=== PATIENT | male | born 1930 | race Caucasian/White ===

== ENCOUNTER 2016-10-12 10:13 | Inpatient (IN) | payer OTHER, MEDICARE ==
[~2016-10-12] VITALS: Ht 180.3 cm; Wt 84.6 kg
[~2016-10-12 10:13] MED LIST: ACYCLOVIR400 MG PO; ADULT MULTI G200 MCG PO; ALBUTEROL0.09 MG/Ac INH; ALDACTONE25 M1 PO; AMLODIPINE BESYL5 MG PO; ARTIFICIAL TEAR15 M1 OPH; ARTIFICIAL TEAR30 M1 OPH; ASMANEX TW0.22 MG/AC IH; ASMANEX220 MCG INH; ASPI-COR81 M1 PO; ASPIR-LOW81 MG PO; ASPIRIN81 M1 PO; ATENOLOL50 MG PO; ATORVASTATIN CA20 M1 PO; ATROVENT I0.5 MG/2.5 INH; Accuneb 0.1.25 MG/3 INH; B12,B-12,B 12500 MC1 PO; BASLE1 CRE TP; BENZONATATE100 M1 PO; CARVEDILOL12.5 MG PO; CEPHALEXIN500 M1 PO; CHEWABLE ASPIRI81 MG PO; CHLORPHENIRAMINE4 MG PO; CIPRO500 MG PO; CIPROFLOXACIN500 MG PO; CLINDAMYCIN300 MG PO; CLONIDINE0.1 MG PO; CLOPIDOGREL75 MG PO; CLOTRIMAZOLE10 MG MM; COLACE100 MG PO; COREG12.5 M1 PO; COREG25 MG PO; COUMADIN4 M2 PO; COUMADIN5 M2 PO; COUMADIN6 M2 PO; COUMADIN7.5 M1 PO; Coumadin3 MG PO; DARVOCET A500 51 TA1 PO; DOCUSATE100 MG PO; DOXYCYCLINE MO100 MG PO; DOXYCYCLINE100 M3 PO; EFFER-K20 MEQ PO; ERYTHROMYCIN OPH1 GM OPH; Ecotrin325 MG PO; FINASTERIDE5 MG PO; FLOMAX0.4 MG PO; FLORASTOR PO; FLUNISOLID0.025 MG/A NS; FLUOROURACIL5% T; FUROSEMIDE10 MG/ML IV; FUROSEMIDE40 MG PO; GOOD SENSE ASP325 M1 PO; IMDUR SA30 MG PO; ISOPTO TEARS INTRAOC; K-DUR 1010 MEQ PO; K-LOR 20MEQ20 ME1 PO; K-Lyte/Cl25 MEQ PO; KENALOG 0.025%15 GM PO; KETOCONAZOLE 1120 M1 TP; KETOCONAZOLE T; KETOCONAZOLE TP; LANOXIN0.125 MG PO; LASIX20 MG PO; LASIX40 MG PO; LEVAQUIN750 M1 PO; LIPITOR20 MG PO; LIPITOR40 MG PO; LISINOPRIL10 M1 PO; LISINOPRIL2.5 MG PO; LISINOPRIL20 MG PO; LISINOPRIL5 MG PO; Lovenox40 MG/0.4 PO; Lovenox40 MG/0.4 SC; MAGNESIUM OXID420 M1 PO; MAGNESIUM OXID420 MG PO; MAGOX 400400 MG PO; MAREPA1200 MG PO; METRONIDAZOLE250 M1 PO; MUCINEX ER600 MG PO; MUCINEX FAST-M1 EAC5 PO; MULTIPLE VITAMI1 CAP PO; MULTIVITAMIN &1 TAB PO; NEOSPORIN OINT15 GM T; NITROSTAT0.4 MG SL; PANTOPRAZOLE SO40 MG PO; PERCOCET 325 MG1 TA2 PO; PLAVIX75 M1 PO; POLYCIN EYE OI3.5 GM OS; POTASSIUM CHLO20 MEQ PO; POTASSIUM20 MEQ PO; PREDNISONE10 MG PO; PREDNISONE20 M1 PO; PRILOSEC20 MG PO; PROVENTIL0.09 MG/A1 INH; PROVENTIL0.09 MG/AC IH; PYRIDIUM200 MG PO; QUESTRAN LIGHT4 GM PO; RANITIDINE 7575 MG PO; SENSI-CARE PROT1 OI1 TP; SIMVASTATIN20 MG PO; SODIUM CHLORIDE; SPIRONOLACTONE50 MG PO; SYMBICORT1 AE1 INH; VANCOCIN125 MG PO; VITAMIN D32000 I1 PO; VITAMIN D32000 UNIT PO; WARFARIN SODIUM5 MG PO; WARFARIN2 MG PO; ZITHROMAX250 MG PO
[2016-10-12 10:31] VITALS: BP 141/67
[2016-10-12] MEDS ORDERED: RANITIDINE 7575 MG PO (10:41)
[2016-10-12 10:44] LABS: BASO % 0.2 % (0.0-1.0); EOS % 0.2 % (1.0-4.0); HEMOGLOBIN 9.5 g/dl (14.0-18.0); LYMPH # 0.4 10*3/uL (1.3-4.4); LYMPH % 8.9 % (27.0-41.0); MEAN CELL VOLUME 93.9 fl (80.0-94.0); MEAN CORPUSCULAR HGB 26.2 pg (27.0-31.0); MEAN CORPUSCULAR HGB CONC 27.9 g/dl (33.0-37.0); MEAN PLATELET VOLUME 10.6 fl (9.6-12.3); MONO # 0.3 10*3/uL (0.1-1.0); NEUT # 3.5 10*3/uL (2.3-7.9); NEUT % 84.5 % (47.0-73.0); PLATELET COUNT AUTOMATED 81 10*3/uL (130-400); RED BLOOD COUNT 3.62 10*6/uL (4.50-5.90); RED CELL DISTRI WIDTH 15.9 % (0-14.5); WHITE BLOOD COUNT 4.2 10*3/uL (4.8-10.8)
[2016-10-12 10:53] LABS: INTERNATIONAL NORM RATIO 1.3 (2.0-3.5); PROTHROMBIN TIME 14.1 SECONDS (9.0-12.4)
[2016-10-12 10:58] LABS: ALBUMIN 3.3 gm/dl (3.1-4.5); ALKALINE PHOSPHATASE 68 U/L (45-117); BILIRUBIN, TOTAL 1.7 mg/dl (0.2-1.0); BUN 26 mg/dl (7-24); C-REACTIVE PROTEIN < 0.29 MG/DL (0-0.3); CARBON DIOXIDE 33 mmol/L (21-32); CHLORIDE 107 mmol/L (98-107); CKMB 2.8 ng/ml (0.5-3.6); CPK 29 U/L (39-308); EST GLOM FILT AFRICAN AMERICAN 53 ml/min; GLUCOSE 87 mg/dL (65-99); MAGNESIUM 2.4 mg/dL (1.5-2.1); POTASSIUM 3.7 mmol/L (3.5-5.1); SGOT/AST 11 IU/L (3-35); SGPT/ALT 9 U/L (12-78); SODIUM 145 mmol/L (136-145); TOTAL PROTEIN 5.8 gm/dL (6.4-8.2); TROPONIN I 0.041 ng/ml (<0.045)
[2016-10-12 13:22] VITALS: BP 145/78
[2016-10-12 13:45] VITALS: BP 151/68
[2016-10-12 14:17] VITALS: BP 151/68
[2016-10-12 16:00] VITALS: BP 137/62
[2016-10-12 20:00] VITALS: BP 130/56
[2016-10-13] VITALS: BP 118/50
[2016-10-13 04:00] VITALS: BP 115/51
[2016-10-13 06:14] LABS: BASO % 0.4 % (0.0-1.0); EOS % 1.2 % (1.0-4.0); HEMATOCRIT 29.5 % (42.0-52.0); HEMOGLOBIN 8.3 g/dl (14.0-18.0); LYMPH # 0.3 10*3/uL (1.3-4.4); LYMPH % 11.2 % (27.0-41.0); MEAN CELL VOLUME 93.1 fl (80.0-94.0); MEAN CORPUSCULAR HGB 26.2 pg (27.0-31.0); MEAN CORPUSCULAR HGB CONC 28.1 g/dl (33.0-37.0); MEAN PLATELET VOLUME 10.3 fl (9.6-12.3); MONO # 0.2 10*3/uL (0.1-1.0); NEUT % 78.8 % (47.0-73.0); PLATELET COUNT AUTOMATED 59 10*3/uL (130-400); RED BLOOD COUNT 3.17 10*6/uL (4.50-5.90); RED CELL DISTRI WIDTH 15.9 % (0-14.5); WHITE BLOOD COUNT 2.5 10*3/uL (4.8-10.8)
[2016-10-13 06:38] LABS: ALBUMIN 2.8 gm/dl (3.1-4.5); ALKALINE PHOSPHATASE 59 U/L (45-117); BILIRUBIN, TOTAL 1.2 mg/dl (0.2-1.0); BUN 23 mg/dl (7-24); CARBON DIOXIDE 35 mmol/L (21-32); CHLORIDE 104 mmol/L (98-107); EST GLOM FILT AFRICAN AMERICAN > 60 ml/min; FREE T4 0.83 ng/dl (0.76-1.46); GLUCOSE 85 mg/dL (65-99); SGOT/AST 11 IU/L (3-35); SGPT/ALT 8 U/L (12-78); SODIUM 144 mmol/L (136-145)
[2016-10-13 06:40] LABS: INTERNATIONAL NORM RATIO 1.3 (2.0-3.5); PROTHROMBIN TIME 14.4 SECONDS (9.0-12.4)
[2016-10-13 06:46] LABS: POTASSIUM 2.6 mmol/L (3.5-5.1)
[2016-10-13 07:00] LABS: FOLIC ACID 6.1 ng/mL (>5.38)
[2016-10-13 08:00] VITALS: BP 124/58
[2016-10-13 12:00] VITALS: BP 120/50; BP 124/58
[2016-10-13 16:00] VITALS: BP 114/46
[2016-10-13 20:00] VITALS: BP 137/69
[2016-10-14] VITALS: BP 124/61
[2016-10-14 07:33] LABS: BUN 18 mg/dl (7-24); CARBON DIOXIDE 33 mmol/L (21-32); CHLORIDE 103 mmol/L (98-107); EST GLOM FILT AFRICAN AMERICAN > 60 ml/min; GLUCOSE 87 mg/dL (65-99); POTASSIUM 2.8 mmol/L (3.5-5.1); SODIUM 142 mmol/L (136-145)
[2016-10-14 08:00] VITALS: BP 128/60
[2016-10-14 12:00] VITALS: BP 132/70
[2016-10-14] MEDS ORDERED: ALDACTONE25 MG PO (13:57)
[2016-10-14 16:00] VITALS: BP 110/58
== END 2016-10-14 17:18 | disposition home or self-care (01) | DRG 291 ==
LOC: ED 10:13 → EDHOLD 12:38 → 4E 12:38
PROVIDERS: Emergency Medicine; Hospitalist; Internal Medicine Hospice and Palliative Medicine
DX: I50.43 Acute on chronic combined systolic (congestive) and diastolic (congestive) heart failure (principal); N17.0 Acute kidney failure with tubular necrosis; J96.90 Respiratory failure, unspecified, unspecified whether with hypoxia or hypercapnia; J18.9 Pneumonia, unspecified organism; D61.818 Other pancytopenia; J96.11 Chronic respiratory failure with hypoxia; D68.59 Other primary thrombophilia; J44.0 Chronic obstructive pulmonary disease with (acute) lower respiratory infection; E44.1 Mild protein-calorie malnutrition; I42.0 Dilated cardiomyopathy; E83.41 Hypermagnesemia; I25.10 Atherosclerotic heart disease of native coronary artery without angina pectoris; I48.2 Chronic atrial fibrillation; E78.5 Hyperlipidemia, unspecified; I73.9 Peripheral vascular disease, unspecified; Z96.652 Presence of left artificial knee joint; E87.6 Hypokalemia; E80.6 Other disorders of bilirubin metabolism; D46.9 Myelodysplastic syndrome, unspecified; I48.0 Paroxysmal atrial fibrillation; Z88.0 Allergy status to penicillin; Z88.2 Allergy status to sulfonamides; Z99.81 Dependence on supplemental oxygen; Z95.810 Presence of automatic (implantable) cardiac defibrillator; Z68.26 Body mass index [BMI] 26.0-26.9, adult; Z83.79 Family history of other diseases of the digestive system; Z82.3 Family history of stroke; Z82.49 Family history of ischemic heart disease and other diseases of the circulatory system; Z95.828 Presence of other vascular implants and grafts; Z98.42 Cataract extraction status, left eye; Z98.41 Cataract extraction status, right eye

== ENCOUNTER 2016-10-28 19:30 | Emergency (ER) | payer MEDICARE ==
[~2016-10-28] VITALS: Ht 180.3 cm; Wt 85.3 kg
[~2016-10-28 19:30] MED LIST changes: +ALDACTONE25 MG PO
[2016-10-28 20:35] LABS: BASO % 0.3 % (0.0-1.0); EOS % 0.5 % (1.0-4.0); HEMATOCRIT 30.8 % (42.0-52.0); HEMOGLOBIN 8.5 g/dl (14.0-18.0); LYMPH # 0.4 10*3/uL (1.3-4.4); LYMPH % 9.8 % (27.0-41.0); MEAN CELL VOLUME 93.6 fl (80.0-94.0); MEAN CORPUSCULAR HGB 25.8 pg (27.0-31.0); MEAN CORPUSCULAR HGB CONC 27.6 g/dl (33.0-37.0); MEAN PLATELET VOLUME 10.8 fl (9.6-12.3); MONO # 0.3 10*3/uL (0.1-1.0); MONO % 6.3 % (3.0-9.0); NEUT # 3.3 10*3/uL (2.3-7.9); NEUT % 82.6 % (47.0-73.0); PLATELET COUNT AUTOMATED 78 10*3/uL (130-400); RED BLOOD COUNT 3.29 10*6/uL (4.50-5.90); RED CELL DISTRI WIDTH 16.3 % (0-14.5)
[2016-10-28 20:45] LABS: INTERNATIONAL NORM RATIO 1.3 (2.0-3.5); PROTHROMBIN TIME 13.5 SECONDS (9.0-12.4)
[2016-10-28 20:47] LABS: POTASSIUM 4.5 mmol/L (3.5-5.1)
[2016-10-28] MEDS ORDERED: ANUSOL-HC25 MG R (21:22)
== END 2016-10-28 21:25 | disposition home or self-care (01) ==
LOC: ED 19:30
PROVIDERS: Emergency Medicine Emergency Medical Services
DX: K62.5 Hemorrhage of anus and rectum (principal); K64.8 Other hemorrhoids; Z87.891 Personal history of nicotine dependence; Z85.810 Personal history of malignant neoplasm of tongue; Z95.810 Presence of automatic (implantable) cardiac defibrillator; Z99.81 Dependence on supplemental oxygen; E78.5 Hyperlipidemia, unspecified; I25.10 Atherosclerotic heart disease of native coronary artery without angina pectoris; I50.9 Heart failure, unspecified; J44.9 Chronic obstructive pulmonary disease, unspecified; I48.91 Unspecified atrial fibrillation; Z88.0 Allergy status to penicillin; Z88.2 Allergy status to sulfonamides; Z79.899 Other long term (current) drug therapy

== ENCOUNTER 2016-11-21 07:43 | Inpatient (IN) | payer MEDICARE ==
[2016-11-21] VITALS (8 sets, daily range): BP systolic 107–129; BP diastolic 45–76
[~2016-11-21] VITALS: Ht 154.9 cm; Wt 90.7 kg
[~2016-11-21 07:43] MED LIST changes: +ANUSOL-HC25 MG R
[2016-11-21] MEDS ORDERED: ATORVASTATIN CA20 M1 PO (07:49)
[2016-11-21] MEDS ORDERED: CLOPIDOGREL75 MG PO (07:50)
[2016-11-21] MEDS ORDERED: LASIX40 MG PO (07:50)
[2016-11-21] MEDS ORDERED: LANOXIN0.125 MG PO (07:50)
[2016-11-21] MEDS ORDERED: COREG6.25 MG PO (07:50)
[2016-11-21] MEDS ORDERED: ISOSORBIDE MONO30 MG PO (07:51)
[2016-11-21] MEDS ORDERED: PRINIVIL10 MG PO (07:51)
[2016-11-21] MEDS ORDERED: MAGNESIUM OXID420 M1 PO (07:51)
[2016-11-21] MEDS ORDERED: PROVENTIL0.09 MG/A1 INH (07:52)
[2016-11-21] MEDS ORDERED: POTASSIUM CHLO20 ME3 PO (07:52)
[2016-11-21] MEDS ORDERED: SYMBICORT1 AE1 INH (07:53)
[2016-11-21] MEDS ORDERED: DOUBLE ANTIBI28.4 GM TP (07:53)
[2016-11-21] MEDS ORDERED: ARTIFICIAL TEA1 EACH OP (07:53)
[2016-11-21] MEDS ORDERED: BASLE1 CRE TP (07:54)
[2016-11-21 08:26] LABS: HEMATOCRIT 28.1 % (42.0-52.0); HEMOGLOBIN 7.5 g/dl (14.0-18.0); LYMPH # 0.3 10*3/uL (1.3-4.4); LYMPH % 6.6 % (27.0-41.0); MEAN CELL VOLUME 91.5 fl (80.0-94.0); MEAN CORPUSCULAR HGB 24.4 pg (27.0-31.0); MEAN CORPUSCULAR HGB CONC 26.7 g/dl (33.0-37.0); MEAN PLATELET VOLUME 11.6 fl (9.6-12.3); MONO # 0.3 10*3/uL (0.1-1.0); MONO % 7.5 % (3.0-9.0); NEUT # 3.7 10*3/uL (2.3-7.9); PLATELET COUNT AUTOMATED 54 10*3/uL (130-400); RED BLOOD COUNT 3.07 10*6/uL (4.50-5.90); RED CELL DISTRI WIDTH 16.8 % (0-14.5); WHITE BLOOD COUNT 4.4 10*3/uL (4.8-10.8)
[2016-11-21 08:35] LABS: INTERNATIONAL NORM RATIO 1.2 (2.0-3.5); PROTHROMBIN TIME 12.5 SECONDS (9.0-12.4)
[2016-11-21 08:44] LABS: ALBUMIN 2.8 gm/dl (3.1-4.5); BILIRUBIN, TOTAL 1.4 mg/dl (0.2-1.0); TOTAL PROTEIN 5.6 gm/dL (6.4-8.2)
[2016-11-21 08:45] LABS: TROPONIN I 0.042 ng/ml (<0.045)
[2016-11-21 18:10] LABS: CKMB 1.6 ng/ml (0.5-3.6); TROPONIN I 0.04 ng/ml (<0.045)
[2016-11-22] VITALS: BP 128/63
[2016-11-22 00:45] LABS: CKMB 0.9 ng/ml (0.5-3.6); TROPONIN I 0.042 ng/ml (<0.045)
[2016-11-22 05:58] LABS: CKMB 1.1 ng/ml (0.5-3.6)
[2016-11-22 06:00] LABS: TROPONIN I 0.056 ng/ml (<0.045)
[2016-11-22 06:04] LABS: EOS % 0.3 % (1.0-4.0); HEMATOCRIT 25.7 % (42.0-52.0); HEMOGLOBIN 6.9 g/dl (14.0-18.0); LYMPH # 0.3 10*3/uL (1.3-4.4); LYMPH % 8.9 % (27.0-41.0); MEAN CELL VOLUME 90.8 fl (80.0-94.0); MEAN CORPUSCULAR HGB 24.4 pg (27.0-31.0); MEAN CORPUSCULAR HGB CONC 26.8 g/dl (33.0-37.0); MEAN PLATELET VOLUME 11.9 fl (9.6-12.3); MONO # 0.3 10*3/uL (0.1-1.0); MONO % 8.6 % (3.0-9.0); NEUT # 2.5 10*3/uL (2.3-7.9); NEUT % 81.5 % (47.0-73.0); PLATELET COUNT AUTOMATED 60 10*3/uL (130-400); RED BLOOD COUNT 2.83 10*6/uL (4.50-5.90); RED CELL DISTRI WIDTH 16.6 % (0-14.5)
[2016-11-22 06:12] LABS: ALBUMIN 2.7 gm/dl (3.1-4.5); ALKALINE PHOSPHATASE 65 U/L (45-117); BILIRUBIN, TOTAL 0.9 mg/dl (0.2-1.0); BUN 26 mg/dl (7-24); CARBON DIOXIDE 34 mmol/L (21-32); CHLORIDE 104 mmol/L (98-107); CHOLESTEROL 54 mg/dL (<200); EST GLOM FILT AFRICAN AMERICAN > 60 ml/min; FREE T4 0.95 ng/dl (0.76-1.46); GLUCOSE 91 mg/dL (65-99); HDL CHOLESTEROL 29 mg/dl (40-60); LDL CHOLESTEROL 16 mg/dL (9-159); MAGNESIUM 2.2 mg/dL (1.5-2.1); PHOSPHOROUS 2.9 mg/dL (2.5-4.9); POTASSIUM 3.4 mmol/L (3.5-5.1); SGOT/AST 10 IU/L (3-35); SGPT/ALT 7 U/L (12-78); SODIUM 146 mmol/L (136-145); TOTAL PROTEIN 5.2 gm/dL (6.4-8.2); TRIGLYCERIDES 45 mg/dl (<150); VLDL CHOLESTEROL 9 mg/dL (6-40)
[2016-11-22 06:21] LABS: INTERNATIONAL NORM RATIO 1.2 (2.0-3.5); PROTHROMBIN TIME 12.3 SECONDS (9.0-12.4)
[2016-11-22 08:00] VITALS: BP 126/82
[2016-11-22 09:54] LABS: FOLIC ACID 5.25 ng/mL (>5.38); VITAMIN D, 25-HYDROXY 21.3 ng/mL (30-100)
[2016-11-22 10:00] VITALS: BP 115/91
[2016-11-22 10:15] VITALS: BP 115/85
[2016-11-22 10:45] VITALS: BP 145/51
[2016-11-22 11:14] VITALS: BP 139/67
== END 2016-11-22 12:42 | disposition short-term general hospital (02) | DRG 291 ==
LOC: ED 07:43 → EDHOLD 09:39 → 5E 09:39
PROVIDERS: Emergency Medicine; Internal Medicine
PROC: 30233N1 Transfusion of Nonautologous Red Blood Cells into Peripheral Vein, Percutaneous Approach (ICD-10-PCS; principal; 2016-11-22)
DX: I50.9 Heart failure, unspecified (principal); E43 Unspecified severe protein-calorie malnutrition; D61.818 Other pancytopenia; J96.10 Chronic respiratory failure, unspecified whether with hypoxia or hypercapnia; Z99.81 Dependence on supplemental oxygen; I48.2 Chronic atrial fibrillation; D46.9 Myelodysplastic syndrome, unspecified; K22.4 Dyskinesia of esophagus; I25.10 Atherosclerotic heart disease of native coronary artery without angina pectoris; E78.5 Hyperlipidemia, unspecified; J44.9 Chronic obstructive pulmonary disease, unspecified; I73.9 Peripheral vascular disease, unspecified; Z95.810 Presence of automatic (implantable) cardiac defibrillator; Z96.652 Presence of left artificial knee joint; Z87.891 Personal history of nicotine dependence; Z82.3 Family history of stroke; Z82.49 Family history of ischemic heart disease and other diseases of the circulatory system; Z88.0 Allergy status to penicillin; Z88.2 Allergy status to sulfonamides; Z68.38 Body mass index [BMI] 38.0-38.9, adult

== ENCOUNTER 2016-11-27 18:44 | Emergency (ER) | payer MEDICARE ==
[~2016-11-27 18:44] MED LIST changes: +ARTIFICIAL TEA1 EACH OP; +COREG6.25 MG PO; +DOUBLE ANTIBI28.4 GM TP; +ISOSORBIDE MONO30 MG PO; +POTASSIUM CHLO20 ME3 PO; +PRINIVIL10 MG PO
== END 2016-11-27 18:53 | disposition expired ==
LOC: ED 18:44
DX: I46.9 Cardiac arrest, cause unspecified (principal); Z87.891 Personal history of nicotine dependence; Z95.5 Presence of coronary angioplasty implant and graft; Z95.810 Presence of automatic (implantable) cardiac defibrillator; I50.9 Heart failure, unspecified; I25.10 Atherosclerotic heart disease of native coronary artery without angina pectoris; E78.5 Hyperlipidemia, unspecified; J44.9 Chronic obstructive pulmonary disease, unspecified; Z99.81 Dependence on supplemental oxygen; Z88.0 Allergy status to penicillin; Z88.2 Allergy status to sulfonamides; Z79.899 Other long term (current) drug therapy